=== PATIENT | male | born 1995 | race Caucasian/White ===

== ENCOUNTER 2019-01-30 01:16 | Emergency (ER) | payer MEDICAID ==
[2019-01-30] MEDS ORDERED: Sodium Chloride 0.9% 10 ML Syringe FLUSH PRN ×2 (01:17→01:28)
[2019-01-30] MEDS ORDERED: fentaNYL 100 MCG/2 ML SDV IVPUSH ONE (01:17)
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
[2019-01-30] MEDS ORDERED: Iopamidol 612 MG/ML 150 ML Bottle IV PRN (01:28)
[2019-01-30] MEDS ORDERED: Lactated Ringers 1,000 ML IV SCH (01:30)
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
== END 2019-01-30 09:42 | disposition home or self-care (01) ==
LOC: JP.ED 01:16
DX: S01.312A Laceration without foreign body of left ear, initial encounter (principal); S20.212A Contusion of left front wall of thorax, initial encounter; S30.0XXA Contusion of lower back and pelvis, initial encounter; H61.23 Impacted cerumen, bilateral; F17.200 Nicotine dependence, unspecified, uncomplicated; F10.129 Alcohol abuse with intoxication, unspecified; V48.5XXA Car driver injured in noncollision transport accident in traffic accident, initial encounter; Y90.6 Blood alcohol level of 120-199 mg/100 ml
CPT/HCPCS: 36415; 70450; 70486; 71260; 72125; 74177; 80053; 81001; 85025; 96361; 96374; 99284; 99285-25; G0480; J3010; J7030; J7120